=== PATIENT | male | born 1980 | race Two or more races ===

== ENCOUNTER 2020-03-29 21:13 | Emergency (ER) | payer OTHER ==
[~2020-03-29] VITALS: Ht 170.2 cm; Wt 89.8 kg
[2020-03-29] MEDS ORDERED: LOSARTAN POTASS25 MG (21:29)
== END 2020-03-29 23:38 | disposition home or self-care (01) ==
LOC: ER 21:13
DX: R06.02 Shortness of breath (principal); F41.0 Panic disorder [episodic paroxysmal anxiety]